=== PATIENT | female | born 1990 | race Caucasian/White ===

== ENCOUNTER 2016-10-24 08:25 | Inpatient (IN) | payer BC ==
[~2016-10-24] VITALS: Ht 165.1 cm; Wt 92.7 kg
[2016-10-24] MEDS ORDERED: LACTATED RINGER'S 1,000 ML IV PRN (10:00)
[2016-10-24] MEDS ORDERED: LACTATED RINGER'S 1,000 ML IV SCH (10:04)
[2016-10-24 10:09] VITALS: Ht 165.1 cm; Wt 92.7 kg
[2016-10-24 10:17] LABS: ADD SCAN DIFF NO
[2016-10-24 10:26] LABS: INR 1.12; PROTIME 14.4 Sec (12.2-14.2); PT RATIO 1.1
[2016-10-24 10:27] LABS: PARTIAL THROMBOPLASTIN TIME 24.5 Sec (25.0-35.0)
[2016-10-24] MEDS ORDERED: LIDOCAINE 1% (MPF) 30 ML INJ INJ PRN (10:30)
[2016-10-24] MEDS ORDERED: IBUPROFEN 600 MG TAB PO PRN ×3 (10:30→14:30)
[2016-10-24] MEDS ORDERED: MISOPROSTOL 200 MCG TAB PR PRN ×4 (10:30→15:00)
[2016-10-24] MEDS ORDERED: METHYLERGONOVINE 0.2 MG INJ IM PRN ×4 (10:30→15:00)
[2016-10-24] MEDS ORDERED: BUTORPHANOL 2 MG INJ IV PRN (10:30)
[2016-10-24] MEDS ORDERED: CARBOPROST 250 MCG INJ IM PRN ×4 (10:30→15:00)
[2016-10-24] MEDS ORDERED: OXYTOCIN 30 UNITS/LR 500 ML IV PRN ×4 (10:30→15:00)
[2016-10-24] MEDS ORDERED: OXYTOCIN 30 UNITS/LR 500 ML IV SCH ×4 (10:30→14:10)
[2016-10-24 10:37] LABS: ABNORMAL IP MESSAGE 1; BASOPHILS % 0.2 % (0.0-2.0); EOSINOPHILS # 0.1 10^3/ul (0.0-0.5); EOSINOPHILS % 1.2 % (0.0-7.0); HEMATOCRIT 41.1 % (37.0-47.0); HEMOGLOBIN 13.5 g/dl (12.0-16.0); LYMPHOCYTES # 1.4 10^3/ul (0.8-2.9); LYMPHOCYTES % 14.5 % (15.0-51.0); MEAN CORPUSCULAR HEMOGLOBIN 30.5 pg (29.0-33.0); MEAN CORPUSCULAR HGB CONC 32.8 g/dl (32.0-37.0); MEAN PLATELET VOLUME 13.5 fl (7.4-10.4); MONOCYTE # 0.6 10^3/ul (0.3-0.9); MONOCYTES % 6.2 % (0.0-11.0); NEUTROPHIL # 7.7 10^3/ul (1.6-7.5); NEUTROPHILS % 77.3 % (39.0-77.0); PLATELET COUNT 154 10^3/UL (140-415); RED BLOOD COUNT 4.42 10^6/ul (4.20-5.40); RED CELL DISTRIBUTION WIDTH 13.3 % (11.5-14.5); WHITE BLOOD COUNT 9.9 10^3/ul (4.8-10.8)
[2016-10-24] MEDS ORDERED: LACTATED RINGER'S 1,000 ML IV ONE (10:42)
[2016-10-24] MEDS ORDERED: FENTAnyl 2MCG/ML-ROPIV 0.2% 100 ML ONE (10:51)
[2016-10-24] MEDS ORDERED: FENTAnyl 2MCG/ML-ROPIV 0.2% 100 ML BAG EPI SCH (11:00)
[2016-10-24] MEDS ORDERED: ONDANSETRON 4 MG INJ IV ONE (11:00)
[2016-10-24] MEDS ORDERED: KETOROLAC 30 MG INJ IV PRN (11:00)
[2016-10-24] MEDS ORDERED: NALOXONE (0.4 MG/ML) INJ IV PRN (11:00)
[2016-10-24] MEDS ORDERED: ONDANSETRON 4 MG INJ IV PRN (11:00)
[2016-10-24] MEDS ORDERED: DIPHENHYDRAMINE 50 MG INJ IV PRN (11:00)
[2016-10-24] MEDS ORDERED: PROCHLORPERAZINE 10 MG INJ IV PRN (11:00)
[2016-10-24] MEDS ORDERED: morphine 2 MG INJ IV PRN ×2 (11:00)
[2016-10-24] MEDS ORDERED: CITRIC ACID/NA CITRATE 30 ML CUP PO ONE (11:00)
--- NOTE | 2016-10-24 12:50 | LDN ---
Date/Time of Note Date/Time of Note DATE: 10/24/16 TIME: 12:45 Delivery Summary October 24 2016 Spontaneous vaginal deliveries report This patient is a 26 years old 3 para 1 1 with estimated due date of October 23, 2016 which makes her 40 weeks and 1 day she was admitted this morning in active labor with 5 cm dilatation she made a gradual progress under epidural anesthesia and had an spontaneous vaginal delivery Laboratory Tests Test 10/24/16 09:31 White Blood Count 9.910^3/ul Red Blood Count 4.4210^6/ul Hemoglobin 13.5g/dl Hematocrit 41.1% Mean Corpuscular Volume 93.0fl Mean Corpuscular Hemoglobin 30.5pg Mean Corpuscular Hemoglobin Concent 32.8g/dl Red Cell Distribution Width 13.3% Platelet Count 33385^3/UL Mean Platelet Volume 13.5fl Neutrophils % 77.3% Lymphocytes % 14.5% Monocytes % 6.2% Eosinophils % 1.2% Basophils % 0.2% Nucleated Red Blood Cells % 0.0/100WBC Neutrophils # 7.710^3/ul Lymphocytes # 1.410^3/ul Monocytes # 0.610^3/ul Eosinophils # 0.110^3/ul Basophils # 0.010^3/ul Nucleated Red Blood Cells # 0.010^3/ul Prothrombin Time 14.4Sec Prothrombin Time Ratio 1.1 INR International Normalized Ratio 1.12 Activated Partial Thromboplast Time 24.5Sec Hepatitis B Surface Antigen NEGATIVE Current Medications Medications (Trade) Dose Ordered Sig/David Route PRN Reason Start Time Stop Time Status Last Admin Dose Admin Lactated Ringer's (Lr) 1,000 ml @ 125 mls/hr Q8H IV 10/24/16 10:04 10/24/16 10:46 Butorphanol Tartrate (Stadol) 2 mg Q2H PRN IV PAIN 10/24/16 10:30 Lidocaine 30 ml 30 ml ONCE PRN INJ EPISIOTOMY/TEARING 10/24/16 10:30 Oxytocin/Lactated Ringer's 500 ml @ 125 mls/hr ONCE -MAY REPEAT X1 IV 10/24/16 10:30 10/24/16 12:34 Oxytocin/Lactated Ringer's 500 ml @ 125 mls/hr ONCE IV 10/24/16 10:30 Ibuprofen 600 mg 600 mg ONCE PRN PO Mild Pain (Pain Score 1-3) 10/24/16 10:30 Lactated Ringer's 1,000 ml @ 2,000 mls/hr Q30M PRN IV PRE-EPIDURAL BOLUS 10/24/16 10:00 Oxytocin/Lactated Ringer's 500 ml @ 0 mls/hr ONCE PRN IV For Hemorrhage Management 10/24/16 10:30 10/24/16 12:05 Methylergonovine Maleate (Methergine) 0.2 mg ONCE PRN IM VAGINAL BLEEDING 10/24/16 10:30 Carboprost Tromethamine (Hemabate) 250 mcg ONCE PRN IM VAGINAL BLEEDING 10/24/16 10:30 Misoprostol (Cytotec) 1,000 mcg ONCE PRN TN VAGINAL BLEEDING 10/24/16 10:30 Naloxone HCl (Narcan) 0.1 mg Q2M PRN IV FOR RESP RATE 8 OR LESS 10/24/16 11:00 10/25/16 10:59 Ketorolac Tromethamine (Toradol) 30 mg Q6H PRN IV PAIN 10/24/16 11:00 10/25/16 10:59 Morphine Sulfate (morphine) 2 mg Q3H PRN IV PAIN LEVEL 1-5 10/24/16 11:00 10/25/16 10:59 Morphine Sulfate (morphine) 4 mg Q3H PRN IV PAIN LEVEL 6-10 10/24/16 11:00 10/25/16 10:59 Diphenhydramine HCl (Benadryl) 25 mg Q6H PRN IV ITCHING 10/24/16 11:00 10/25/16 10:59 Ondansetron HCl (Zofran Inj) 4 mg Q6H PRN IV NAUSEA AND/OR VOMITING 10/24/16 11:00 10/25/16 10:59 Prochlorperazine (Compazine Inj) 10 mg ONCE PRN IV NAUSEA AND/OR VOMITING 10/24/16 11:00 10/25/16 10:59 Fentanyl/ Ropivacaine 100 ml 100 ml EPIDURAL INFUSION EPI 10/24/16 11:00 Lactated Ringer's (Lr) 1,000 ml @ 1,000 mls/hr Q1H ONCE IV 10/24/16 10:42 10/24/16 11:41 DC Ondansetron HCl (Zofran Inj) 4 mg pre-procedure ONCE IV 10/24/16 11:00 10/24/16 11:01 DC 10/24/16 11:19 Citric Acid/ Sodium Citrate 30 ml 30 ml pre-procedure ONCE PO 10/24/16 11:00 10/24/16 11:01 DC Fentanyl/ Ropivacaine 100 ml @ ud STK-MED ONCE .ROUTE 10/24/16 10:51 10/24/16 10:52 DC Placenta Delivered: Spontaneously Meconium: none Episiotomy: No Anesthesia type: Epidural Estimated blood loss: 250 Sponge & Needle done & correct: Yes All needle counts correct: Yes Any foreign bodies felt in the: No Problems: Infant Delivery Information Sex Sex: female Apgars 1 Minute: 8 5 Minute: 9 Suctioning Nose & mouth suctioned at jacqueline: Yes Delee suction performed: No Umbilical Cord Umbilical cord with: 3 Vessels Cord presentations: no nuchal cord Cord Blood was obtained: Yes Mother & Baby Disposition Disposition Mom & Baby to Maternity; Good: Yes Mom transferred to: Med/Surg MARGE TUBBS MD Oct 24, 2016 12:50
[2016-10-24 14:00] VITALS: BP 128/62; PULSE 73; RESP 18
[2016-10-24] MEDS ORDERED: LACTATED RINGER'S 1,000 ML IV* SCH (14:10)
[2016-10-24] MEDS ORDERED: DEXTROSE 5%-LR 1,000 ML IV SCH (14:10)
[2016-10-24 14:30] VITALS: BP 121/55; PULSE 66; RESP 18
[2016-10-24] MEDS ORDERED: BENZOCAINE 20% 56 ML SPRAY TOP PRN (14:30)
[2016-10-24] MEDS ORDERED: KETOROLAC 30 MG INJ IM PRN ×2 (14:30)
[2016-10-24] MEDS ORDERED: LANOLIN 7 GM TUBE TOP PRN (14:30)
[2016-10-24] MEDS ORDERED: OXYCODONE/ASPIRIN (4.88/325) TAB PO PRN ×2 (14:30)
[2016-10-24] MEDS ORDERED: ACETAMINOPHEN 500 MG TAB PO PRN ×3 (14:30→15:00)
[2016-10-24] MEDS ORDERED: DIBUCAINE 1% 30 GM OINT PR PRN (14:30)
[2016-10-24] MEDS ORDERED: SENNA/DOCUSATE NA (8.6MG/50MG) TAB PO PRN (14:30)
[2016-10-24] MEDS ORDERED: WITCH HAZEL/GLYCERIN PAD PR PRN (14:30)
[2016-10-24] MEDS: LACTATED RINGER'S 1,000 ML IV* SCH ×2 (14:39→22:39)
[2016-10-24] MEDS: OXYTOCIN 30 UNITS/LR 500 ML IV SCH ×3 (16:05→22:39)
[2016-10-24 16:30] VITALS: BP 138/78; PULSE 74; RESP 18
[2016-10-24] MEDS: IBUPROFEN 600 MG TAB PO PRN (18:17)
[2016-10-24 19:35] VITALS: BP 117/60; PULSE 76; RESP 18
[2016-10-25] VITALS: BP 116/53; PULSE 75; RESP 18
[2016-10-25] MEDS: IBUPROFEN 600 MG TAB PO PRN ×2 (00:18→17:12)
[2016-10-25] MEDS: OXYTOCIN 30 UNITS/LR 500 ML IV SCH (02:39)
[2016-10-25 04:25] VITALS: PULSE 78; RESP 18
[2016-10-25 08:05] LABS: ADD SCAN DIFF NO
[2016-10-25 08:07] VITALS: BP 115/68; PULSE 75; RESP 18
[2016-10-25 08:09] LABS: BASOPHILS % 0.4 % (0.0-2.0); EOSINOPHILS # 0.2 10^3/ul (0.0-0.5); EOSINOPHILS % 1.8 % (0.0-7.0); HEMATOCRIT 36.3 % (37.0-47.0); HEMOGLOBIN 11.9 g/dl (12.0-16.0); LYMPHOCYTES % 21.5 % (15.0-51.0); MEAN CORPUSCULAR HEMOGLOBIN 30.7 pg (29.0-33.0); MEAN CORPUSCULAR HGB CONC 32.8 g/dl (32.0-37.0); MEAN CORPUSCULAR VOLUME 93.8 fl (82.0-101.0); MONOCYTE # 0.7 10^3/ul (0.3-0.9); MONOCYTES % 7.2 % (0.0-11.0); NEUTROPHIL # 6.3 10^3/ul (1.6-7.5); NEUTROPHILS % 68.2 % (39.0-77.0); PLATELET COUNT 155 10^3/UL (140-415); RED BLOOD COUNT 3.87 10^6/ul (4.20-5.40); RED CELL DISTRIBUTION WIDTH 13.5 % (11.5-14.5); WHITE BLOOD COUNT 9.3 10^3/ul (4.8-10.8)
[2016-10-25 16:00] VITALS: BP 115/62; PULSE 83; RESP 18
--- NOTE | 2016-10-25 18:19 | DS ---
Date/Time of Note Date/Time of Note home next day DATE: 10/25/16 TIME: 18:17 Obstetrical Discharge Record Final Diagnosis Final Diagnosis: Term delivered Other Final Diagnosis S/P vaginal delivery Vaginal Delivery Obstetrical Delivery: Spontaneous Condition on Discharge Physical Assessment Last Vitals: see nurses notes Voiding: Yes Bowel Movement: Yes Breast: Soft, non-tender, Filling Fundus: Firm Abdomen and Incision: soft BS+ Episiotomy: NA Calf Tenderness: No Patient Condition: Good ARIANA FARRIS MD Oct 25, 2016 18:19
--- NOTE | 2016-10-25 18:20 | PD.PPDC ---
[employer] Discharge Instruction Provider Information Physician Information 27 y/o female had vaginal delivery Diagnosis Final Diagnosis: S/P vaginal bleeding Condition Patient Condition: Good Diet Diet: Resume Regular Diet Activity/Restrictions Activity: Normal Activity May Shower Restrictions: Nothing in the Vagina Return to Work or School: Dec 11, 2016 Follow-up Follow-up with Physician: 4, Week/Weeks (in clinic ) Return to clinic for OB Instructions: Breast Tenderness Depression ARIANA FARRIS MD Oct 25, 2016 18:20
[2016-10-25] MEDS ORDERED: IBUP-1542 PO (18:21)
--- NOTE | 2016-10-25 18:27 | HP ---
Date/Time of Note Date/Time of Note DATE: 10/25/16 TIME: 18:23 OB - History Hx of Present Free Text/Dictation admitted in active labor Chief Complaint: labor pains Last Menstrual Period: Jan 17, 2016 Estimated Due Date: Oct 23, 2016 : 3 Para: 1 Spontaneous : 1 Care: Good Care Ultrasounds: Normal mid trimester US Obstetrical Complications: None Medical Complications: None Past Family/Social History * Past Medical, Surgical, Family and Obstetric Histories reviewed from chart. Blood Type: A+ Rubella: immune RPR/VDRL: Negative GBS Status: Negative HBsAG: Negative OB Admission Exam Vital Signs Vital Signs Vital Signs Date Time Temp Pulse Resp B/P Pulse Ox O2 Delivery O2 Flow Rate FiO2 10/25/16 16:00 98.1 83 18 115/62 Room Air Physical Exam HEENT: WNL Heart: Rhythm Normal Lungs: Clear, Equal Abdomen: WNL Extremities: Normal Reflexes: Normal Cervical Dilatation: 5cm Effacement: 100% Station: -2 Membranes: Intact Heart Rate: 140's Accelerations: Accelerations Present Decelerations: No Decelerations Varibility: Marked Contractions on Admission: < 5 Minutes Apart Date/Time Contractions Began: 10/24/2016 0800 AM Frequency of Contractions: q 3 Duration: >60 seconds Last 72 hours Lab Results CBC & BMP 10/24/16 09:31 10/25/16 07:46 OB Assessment/Plan Reason for admission: active labor Other Assessment: term gestation labor pains Other plan: proceed with labor ARIANA FARRIS MD Oct 25, 2016 18:27
[2016-10-25 19:30] VITALS: BP 131/83; PULSE 75; RESP 19
[2016-10-26 04:12] VITALS: BP 121/71; PULSE 80; RESP 20
[2016-10-26 07:45] VITALS: BP 114/65; PULSE 80; RESP 18
[2016-10-26] MEDS: IBUPROFEN 600 MG TAB PO PRN (08:50)
[2016-10-26] MEDS ORDERED: DIPHTH/TET/ACEL PERTUSS (ADULT) 0.5 ML VIAL IM* ONE (09:00)
== END 2016-10-26 14:00 | disposition home or self-care (01) | DRG 775 ==
LOC: L-D 08:25 → PP1 14:06
PROVIDERS: ADMIT Obstetrics & Gynecology; ATTEND Obstetrics & Gynecology
PROC: 10E0XZZ Delivery of Products of Conception, External Approach (ICD-10-PCS; principal; 2016-10-24 09:00)
DX: O48.0 Post-term pregnancy (principal); Z37.0 Single live birth; Z3A.40 40 weeks gestation of pregnancy
CPT/HCPCS: 85025; 85610; 85730; 86592; 86900; 86901; 87340; 90715; J2405; J2590; J3010; J7120; J7121